=== PATIENT | female | born 1970 | race Two or more races ===

== ENCOUNTER 2017-12-24 09:28 | Outpatient (CLI) | payer OTHER | END 2017-12-24 09:38 | disposition home or self-care (01) | LOC: SONOGRAMA 09:28 | DX: E04.2 Nontoxic multinodular goiter (principal) ==

== ENCOUNTER → 2019-09-22 | Outpatient (CLI) | payer OTHER | END | disposition home or self-care (01) | LOC: SONOGRAMA 07:47 | DX: R22.2 Localized swelling, mass and lump, trunk (principal) ==